=== PATIENT | male | born 1960 | race African-American/Black ===

== ENCOUNTER 2017-05-03 07:09 | Emergency (ER) | payer OTHER ==
[~2017-05-03] VITALS: Ht 182.9 cm; Wt 101.6 kg
== END 2017-05-03 08:39 | disposition home or self-care (01) ==
LOC: ED 07:09
DX: Z04.1 Encounter for examination and observation following transport accident (principal); F17.200 Nicotine dependence, unspecified, uncomplicated; V53.5XXA Driver of pick-up truck or van injured in collision with car, pick-up truck or van in traffic accident, initial encounter; Z90.49 Acquired absence of other specified parts of digestive tract
CPT/HCPCS: 99283; G0480